=== PATIENT | female | born 1945 | race Asian ===

== ENCOUNTER 2018-02-04 11:13 | Inpatient (IN) | payer MEDICARE ==
[~2018-02-04] VITALS: Ht 157.5 cm; Wt 64.9 kg
--- NOTE | 2018-02-04 11:16 | NUR ---
PT BIBRA FROM HOME TO ER BED 03. C/O L HIP PAIN S/P MECHANICAL FALL AFTER MISSING A STEP GOING DOWN THE STAIRS. NO OBVIOUS DEFORMITY. WAS GIVEN MORPHINE 4MG IVP. VSS NUVIA SAHU.
--- NOTE | 2018-02-04 11:18 | NUR ---
DR ESCUDERO AT BEDSIDE FOR EVAL.
[2018-02-04 11:38] LABS: BASOPHILS # (AUTO) 0.1 /CMM (0.0-0.2); BASOPHILS % (AUTO) 0.8 % (0.0-2.0); EOSINOPHILS % (AUTO) 3.2 % (0.0-6.0); HEMATOCRIT 38 % (33-45); HEMOGLOBIN 12.6 g/dL (11.5-14.8); LYMPHOCYTES # (AUTO) 1.9 /CMM (0.8-4.8); LYMPHOCYTES % (AUTO) 28.8 % (20.0-44.0); MEAN CORPUSCULAR HEMOGLOBIN 29 PG (26.0-33.0); MEAN CORPUSCULAR HGB CONC 33 g/dl (31.0-36.0); MEAN CORPUSCULAR VOLUME 88 fL (82-100); MONOCYTES # (AUTO) 0.6 /CMM (0.1-1.30); MONOCYTES % (AUTO) 9.4 % (2.0-12.0); NEUTROPHILS # (AUTO) 3.9 /CMM (1.8-8.9); NEUTROPHILS % (AUTO) 57.8 % (43.0-81.0); PLATELET COUNT (AUTO) 221 /CMM (150-450); RDW COEFFICIENT OF VARIATION 14.4 (11.5-15.0); RED BLOOD CELL COUNT(AUTO) 4.35 MIL/uL (4.0-5.2); WHITE BLOOD COUNT (AUTO) 6.7 K/uL (4.3-11.0)
[2018-02-04 11:48] LABS: CALCIUM, SERUM 8.8 mg/dL (8.5-10.1); CARBON DIOXIDE 26 mmol/L (21-32); CHLORIDE 105 mmol/L (98-107); CREATININE 0.8 mg/dL (0.6-1.3); GLUCOSE 117 mg/dL (74-106); SODIUM SERUM 137 mmol/L (136-145); UREA NITROGEN, BLOOD 16 mg/dL (7-18)
[2018-02-04 11:51] LABS: INR 0.91 (0.85-1.15)
[2018-02-04 11:57] LABS: TROPONIN I < 0.017 ng/mL (0.00-0.056)
--- NOTE | 2018-02-04 11:58 | NUR ---
RADIOLOGY AT BEDSIDE FOR PELVIC, HIP AND CHEST XRAY.
--- NOTE | 2018-02-04 12:07 | NUR ---
CALLED [facility]
--- NOTE | 2018-02-04 12:08 | NUR ---
CALLED JARRED HARKINS, BUSINESS PLANNER WAS PAGED.
[2018-02-04] MEDS ORDERED: Z GUARD REMEDY 2 OZ OINT TP PRN (12:30)
[2018-02-04] MEDS ORDERED: ZOLPIDEM TARTRATE 5 MG TABLET PO PRN (12:30)
[2018-02-04] MEDS ORDERED: ONDANSETRON HCL/PF 4 MG/2 ML VIAL IVP PRN (12:30)
[2018-02-04] MEDS ORDERED: MAG HYDROX/AL HYDROX/SIMETH 30 ML UDC PO PRN (12:30)
[2018-02-04] MEDS ORDERED: ACETAMINOPHEN 325 MG TABLET PO PRN (12:30)
[2018-02-04] MEDS ORDERED: MAGNESIUM HYDROXIDE 30 ML UDC PO PRN (12:30)
[2018-02-04] MEDS ORDERED: ASPI-1169 PO (13:46)
[2018-02-04] MEDS ORDERED: SIMV20TA6 PO (13:46)
[2018-02-04] MEDS: HYDROCODONE/APAP 5/325MG 1 EACH TABLET PO PRN ×2 (14:16→20:08)
--- NOTE | 2018-02-04 14:20 | NUR ---
MS RN NOTES RECEIVED PATIENT FROM ER PATIENT ALERT, ORIENTED X3 NO SOB OR ACUTE DISTRESS NOTED. PATIENT WITH FAMILY AT BEDSIDE. REPORTS PAIN TO LEFT HIP WITH MOVEMENT . PATIENT WITH NO PAST MEDICAL HISTORY. PATIENT REFUSES SKIN ASSESSMENT STATES SHE IS SCARED TO MOVE. PATIENT ORIENTED TO ROOM. CALL LIGHT WITHIN REACH. BED IN LOW LOCKED POSITION. WILL CONTINUE TO MONITOR.
[2018-02-04] MEDS ORDERED: HYDROMORPHONE 1 MG/1 ML DISP.SYRIN IV PRN (17:30)
--- NOTE | 2018-02-04 18:31 | NUR ---
MS RN NOTES PATIENT IN BED RESTING PAIN IS CONTROLLED WITH MEDICATION. ALL DUE MEDICATIONS ADMINISTERED. ALL NEEDS MET WILL ENDORSE TO PM SHIFT QUANG.
--- NOTE | 2018-02-04 19:00 | NUR ---
RN OPENING NOTES PT AWAKE AND RESTING IN BED. PT COMPLAINS OF PAIN BUT STATED THAT SHE DOES NOT WANT TO TAKE MEDICATION AT THIS TIME. WILL CONTINUE TO FOLLOW UP AND WORK WITH PATIENT ON PAIN MANAGEMENT. PT HAS A SMITH CATHETER INTACT AND DRAINING WELL. PT HAS A RIGHT AC #20 INTACT AND PATENT. PER DAY SHIFT NURSE PATIENTS SON WILL BE RETURNING AFTER HE HAS DINNER TO SIGN CONSENT FOR LEFT INTRAMEDULLARY RODDING SX TOMORROW. PER LIN DAY SHIFT NURSE THE SURGERY IS SCHEDULED BETWEEN [phone] TOMORROW. PT WILL NEED TO BE NPO AFTER 0800. SAFETY PRECAUTIONS IN PLACE, BED IN LOWEST LOCKED POSITION, X2 SIDE RAILS UP, AND CALL LIGHT WITHIN REACH. WILL CONTINUE TO MONITOR.
[2018-02-04 20:00] VITALS: BP 148/78
[2018-02-05] VITALS (8 sets, daily range): BP systolic 110–166; BP diastolic 69–84
[2018-02-05] MEDS: HYDROMORPHONE INJ 2 MG/ML DISP.SYRIN IV PRN ×4 (00:11→19:54)
--- NOTE | 2018-02-05 06:32 | NUR ---
RN CLOSING NOTES PT RESTING IN BED. NO COMPLAINTS OF SOB OR DISTRESS OVER NIGHT. PAIN MANAGED DURING SHIFT. PT HAS A SMITH CATHETER INTACT AND DRAINING WELL 1200 OUTPUT. PT HAS A RIGHT AC #20 INTACT AND PATENT. ALL CONSENTS SIGNED FOR LEFT HIP SURGERY. PT WILL NEED TO BE NPO AFTER 0800. ALL PATIENT NEEDS MET OVERNIGHT.SAFETY PRECAUTIONS IN PLACE, BED IN LOWEST LOCKED POSITION, X2 SIDE RAILS UP, AND CALL LIGHT WITHIN REACH. WILL ENDORSE TO DAY SHIFT NURSE FOR CONTINUITY OF CARE.
[2018-02-05 06:56] LABS: BASOPHILS % (AUTO) 0.2 % (0.0-2.0); EOSINOPHILS % (AUTO) 0.2 % (0.0-6.0); HEMATOCRIT 37 % (33-45); HEMOGLOBIN 12.2 g/dL (11.5-14.8); LYMPHOCYTES # (AUTO) 1.4 /CMM (0.8-4.8); LYMPHOCYTES % (AUTO) 12.9 % (20.0-44.0); MEAN CORPUSCULAR HEMOGLOBIN 30 PG (26.0-33.0); MEAN CORPUSCULAR HGB CONC 33 g/dl (31.0-36.0); MEAN CORPUSCULAR VOLUME 91 fL (82-100); MONOCYTES # (AUTO) 0.6 /CMM (0.1-1.30); MONOCYTES % (AUTO) 5.8 % (2.0-12.0); NEUTROPHILS # (AUTO) 8.6 /CMM (1.8-8.9); NEUTROPHILS % (AUTO) 80.9 % (43.0-81.0); PLATELET COUNT (AUTO) 210 /CMM (150-450); RDW COEFFICIENT OF VARIATION 15.1 (11.5-15.0); RED BLOOD CELL COUNT(AUTO) 4.03 MIL/uL (4.0-5.2); WHITE BLOOD COUNT (AUTO) 10.6 K/uL (4.3-11.0)
[2018-02-05 07:17] LABS: CALCIUM, SERUM 8.7 mg/dL (8.5-10.1); CARBON DIOXIDE 26 mmol/L (21-32); CHLORIDE 99 mmol/L (98-107); CREATININE 0.6 mg/dL (0.6-1.3); GLUCOSE 131 mg/dL (74-106); PHOSPHORUS 3.1 mg/dL (2.5-4.9); POTASSIUM 3.7 mmol/L (3.5-5.1); SODIUM SERUM 135 mmol/L (136-145); UREA NITROGEN, BLOOD 13 mg/dL (7-18)
[2018-02-05 07:39] LABS: CHOLESTEROL 170 mg/dL (<200); HDL CHOLESTEROL 51 mg/dL (40-60); LDL 102 mg/dL (0-99); TRIGLYCERIDES 88 mg/dL (30-150)
--- NOTE | 2018-02-05 08:00 | NUR ---
RECEIVED PT. THIS AM NPO AFTER 8AM BREAKFAST.PT. UNDERSTANDS SOME MOROCCAN.
--- NOTE | 2018-02-05 10:00 | NUR ---
SPOUSE IN AND INFORMED OF NEEDED INFO SPEAKS FLUENT MONGOLIAN.CHECKLIST DONE.
--- NOTE | 2018-02-05 13:24 | NUR ---
MEDICATED FOR LT. HIP PAIN WITH DILAUDID.
--- NOTE | 2018-02-05 16:00 | NUR ---
TO OR VIA BED.
[2018-02-05] MEDS ORDERED: ANESTHESIA TRAY IN PYXIS 1 EA TRAY MC ONE (16:43)
[2018-02-05] MEDS ORDERED: BUPIVACAINE MPF 0.75% 30 ML VIAL ONE (16:51)
[2018-02-05] MEDS ORDERED: BACITRACIN 50000 UNITS/VIAL ONE (16:51)
--- NOTE | 2018-02-05 18:50 | NUR ---
RETURNED TO RM.VS STABLE. SCANT SPOT OF SANGUINOUS DRAINAGE ON BOTH HIP DRESSINGS.IV INFUSING SLOWLY.FAMILY AT BEDSIDE.
--- NOTE | 2018-02-05 19:20 | NUR ---
ENDORSED TO NOC RN TO APPLY DVT PUMPS.
--- NOTE | 2018-02-05 19:20 | NUR ---
RN INITIAL NOTES: Received patient in bed, alert, oriented x 4. Family at bedside. Breathing even and unlabored. Peripheral IV infusing slowly. Scant sanguinous drainage noted on hip dressing. Call barfield within reach. Bed in low, locked position. Patient stable as endorsed by the morning shift RN. Will monitor accordingly
--- NOTE | 2018-02-05 19:55 | NUR ---
RN NOTES: Patient c/o pain on hip, dilaudid 1mg IV given as ordered. DVT pump in place
--- NOTE | 2018-02-05 20:34 | NUR ---
Patient is alert and pleasant, lives in a multi-level home with family. Prior to admission, patient was ambulatory and independent with adl's. No DME or homehealth reported. Has good family support. Went for hip surgery this afternoon. Patient is a good candidate for ARU,awaiting PT eval. Addendum: 02/05/18 at 2033 by CHIDI WASHINGTON RN Amended: Links added.
[2018-02-05] MEDS ORDERED: ENOXAPARIN SODIUM 40 MG/0.4 ML DISP.SYRIN SQ SCH (21:00)
[2018-02-05] MEDS: SIMVASTATIN 20 MG TABLET PO SCH (21:55)
[2018-02-06] MEDS: ANCEF 1 GM/50 ML D5W IV SCH ×6 (00:39→17:51)
[2018-02-06] MEDS: HYDROMORPHONE INJ 2 MG/ML DISP.SYRIN IV PRN (06:27)
--- NOTE | 2018-02-06 07:07 | NUR ---
RN CLOSING NOTES: Patient in bed, alert, oriented x 4, japanese speaking. No complaints as of this time. Patient remains stable. All needs attended to. All due medications given as ordered. Will endorse marisela to AM shift RN
[2018-02-06 08:00] VITALS: BP 90/54
[2018-02-06] MEDS ORDERED: BISACODYL (5 MG) 5 MG TABLET.DR PO PRN (09:00)
[2018-02-06] MEDS ORDERED: HYDROMORPHONE INJ 2 MG/ML DISP.SYRIN IV PRN (09:00)
[2018-02-06] MEDS ORDERED: BISACODYL SUPP (10 MG) 10 MG/SUPP.RECT SUPP.RECT RC PRN (09:00)
[2018-02-06 09:25] LABS: BASOPHILS % (AUTO) 0.2 % (0.0-2.0); EOSINOPHILS % (AUTO) 0.2 % (0.0-6.0); HEMATOCRIT 29 % (33-45); HEMOGLOBIN 9.6 g/dL (11.5-14.8); LYMPHOCYTES # (AUTO) 2.1 /CMM (0.8-4.8); LYMPHOCYTES % (AUTO) 17.1 % (20.0-44.0); MEAN CORPUSCULAR HEMOGLOBIN 30 PG (26.0-33.0); MEAN CORPUSCULAR HGB CONC 33 g/dl (31.0-36.0); MEAN CORPUSCULAR VOLUME 91 fL (82-100); MONOCYTES # (AUTO) 1.2 /CMM (0.1-1.30); MONOCYTES % (AUTO) 10.1 % (2.0-12.0); NEUTROPHILS % (AUTO) 72.4 % (43.0-81.0); PLATELET COUNT (AUTO) 189 /CMM (150-450); RDW COEFFICIENT OF VARIATION 15.6 (11.5-15.0); RED BLOOD CELL COUNT(AUTO) 3.15 MIL/uL (4.0-5.2); WHITE BLOOD COUNT (AUTO) 12.4 K/uL (4.3-11.0)
[2018-02-06 09:28] LABS: CALCIUM, SERUM 8.1 mg/dL (8.5-10.1); CARBON DIOXIDE 26 mmol/L (21-32); CHLORIDE 101 mmol/L (98-107); CREATININE 1.1 mg/dL (0.6-1.3); GLUCOSE 146 mg/dL (74-106); POTASSIUM 3.8 mmol/L (3.5-5.1); SODIUM SERUM 135 mmol/L (136-145); UREA NITROGEN, BLOOD 19 mg/dL (7-18)
[2018-02-06 09:32] LABS: ALANINE AMINOTRANSFERASE 16 U/L (12-78); ALBUMIN 3.1 g/dL (3.4-5.0); ALKALINE PHOSPHATASE 47 U/L (46-116); ASPARTATE AMINOTRANSFERASE 25 U/L (15-37); BILIRUBIN,TOTAL 0.7 mg/dL (0.2-1.0); PHOSPHORUS 3.9 mg/dL (2.5-4.9); TOTAL PROTEIN, SERUM 6.6 g/dL (6.4-8.2)
[2018-02-06] MEDS: ASPIRIN 81 MG TAB.CHEW PO SCH (09:41)
[2018-02-06] MEDS: POLYETHYLENE GLYCOL 3350 17 GM POWD.PACK PO SCH ×2 (09:42→21:25)
[2018-02-06 16:00] VITALS: BP 91/52
--- NOTE | 2018-02-06 18:30 | NUR ---
dr. quach,dr. rivera,physical tx and jacinta rodriguez pa in to see pt. had lrg. bm today after miralax.family in to visit.
--- NOTE | 2018-02-06 19:15 | NUR ---
RN INITIAL NOTES: RECEIVED PATIENT SITTING UP IN BED, WATCHING TV. ALERT, ORIENTED X 4, FILIPINO SPEAKING. BREATHING EVEN AND UNLABORED. NO COMPLAINTS OF THIS TIME. CALL TAVERA WITHIN REACH. BED IN LOW LOCKED POSITION. PATIENT STABLE ENDORSED BY AM SHIFT RN. WILL CONTINUE TO MONITOR ACCORDINGLY.
[2018-02-06 20:00] VITALS: BP 116/62
[2018-02-06] MEDS ORDERED: ENOXAPARIN SODIUM 40 MG/0.4 ML DISP.SYRIN SQ SCH (21:00)
[2018-02-06] MEDS: SIMVASTATIN 20 MG TABLET PO SCH (21:26)
--- NOTE | 2018-02-06 22:13 | NUR ---
RN NOTES: Patient moved her bowels; small, formed
[2018-02-07] MEDS: HYDROCODONE/APAP 10/325MG 1 EA TABLET PO PRN ×2 (02:26→08:19)
[2018-02-07 06:22] LABS: BASOPHILS % (AUTO) 0.3 % (0.0-2.0); EOSINOPHILS % (AUTO) 2.2 % (0.0-6.0); HEMATOCRIT 25 % (33-45); HEMOGLOBIN 8.4 g/dL (11.5-14.8); LYMPHOCYTES # (AUTO) 1.6 /CMM (0.8-4.8); LYMPHOCYTES % (AUTO) 16.7 % (20.0-44.0); MEAN CORPUSCULAR HEMOGLOBIN 30 PG (26.0-33.0); MEAN CORPUSCULAR HGB CONC 34 g/dl (31.0-36.0); MEAN CORPUSCULAR VOLUME 91 fL (82-100); MONOCYTES # (AUTO) 1.1 /CMM (0.1-1.30); MONOCYTES % (AUTO) 11.2 % (2.0-12.0); NEUTROPHILS # (AUTO) 6.8 /CMM (1.8-8.9); NEUTROPHILS % (AUTO) 69.6 % (43.0-81.0); PLATELET COUNT (AUTO) 159 /CMM (150-450); RDW COEFFICIENT OF VARIATION 15.1 (11.5-15.0); RED BLOOD CELL COUNT(AUTO) 2.76 MIL/uL (4.0-5.2); WHITE BLOOD COUNT (AUTO) 9.7 K/uL (4.3-11.0)
[2018-02-07 06:51] LABS: ALANINE AMINOTRANSFERASE 17 U/L (12-78); ALKALINE PHOSPHATASE 47 U/L (46-116); ASPARTATE AMINOTRANSFERASE 21 U/L (15-37); BILIRUBIN,TOTAL 0.8 mg/dL (0.2-1.0); CALCIUM, SERUM 8.2 mg/dL (8.5-10.1); CARBON DIOXIDE 26 mmol/L (21-32); CHLORIDE 102 mmol/L (98-107); CREATININE 0.7 mg/dL (0.6-1.3); GLUCOSE 126 mg/dL (74-106); MAGNESIUM 2.1 mg/dL (1.8-2.4); PHOSPHORUS 3.8 mg/dL (2.5-4.9); POTASSIUM 4.3 mmol/L (3.5-5.1); SODIUM SERUM 136 mmol/L (136-145); TOTAL PROTEIN, SERUM 6.6 g/dL (6.4-8.2); UREA NITROGEN, BLOOD 21 mg/dL (7-18)
--- NOTE | 2018-02-07 07:18 | NUR ---
RN INITIAL NOTES: PATIENT RESTING IN BED. NONLABORED BREATHING NOTED ON ROOM AIR. DENYING PAIN AT THE MOMENT. IV SITE ON RFA PATENT AND INTACT. BED IN LOWEST LOCKED POSITION. CALL LIGHT WITHIN REACH. WILL CONTINUE TO MONITOR
--- NOTE | 2018-02-07 07:27 | NUR ---
RN CLOSING NOTES: Patient remained stable. No complaints of pain or discomfort as of this time. Call barfield within reach. Bed in low locked position. All needs attended to. All due meds given as ordered. Endorsed to morning shift RN.
[2018-02-07 08:00] VITALS: BP 114/60
--- NOTE | 2018-02-07 08:21 | NUR ---
INCENTIVE SPIROMETER PATIENT PROVIDED WITH IS, BENEFITS AND RISKS EXPLAINED. EDUCATED HOW AND HOW OFTEN TO USE IT. PATIENT VERBALIZED UNDERSTANDING
[2018-02-07] MEDS: ASPIRIN 81 MG TAB.CHEW PO SCH (09:57)
[2018-02-07] MEDS ORDERED: BISA5TAB10 PO (11:19)
[2018-02-07] MEDS ORDERED: Hydrocodone/Apap 10/325MG PO (11:19)
[2018-02-07] MEDS ORDERED: POLY17PO4 PO (11:19)
[2018-02-07] MEDS ORDERED: ENOX40DI SQ (11:19)
--- NOTE | 2018-02-07 12:17 | NUR ---
RECEIVED AN ORDER FROM DR RASMUSSEN TO REMOVE SMITH CATHETER. VERBAL READBACK DONE
--- NOTE | 2018-02-07 14:01 | NUR ---
IV LINE ON RIGHT AC REMOVED WAS NOT PATENT. NEW IV LINE ON LEFT FA INSERTED GAUGE 22
--- NOTE | 2018-02-07 16:10 | NUR ---
PATIENT DISCHARGED TO [facility]. FULL REPORT GIVEN TO LIANA SAAVEDRA, DISCUSSED INSTRUCTIONS TO FOLLOW UP WITH DR COLLINS IN A WEEK. DISCUSSED PHYSICAL THERAPY INSTRUCTIONS, DISCUSSED HEMOGLOBIN PARAMETERS FOR LOVENOX PATIENT DISCHARGED TO SNF PER [facility]. DR RASMUSSEN AWARE OF [facility]. NO SIGNS OF BLEEDING NOTED DURING SHIFT. NO VOMITING NOR DIARRHEA NOTED DURING SHIFT. FIRST DRESSING CHANGE DONE BY COREY RINALDI- EDUCATED PATIENT WELL SON, VASYL, WHO IS AWARE OF DISCHARGE ON EXISTCARE INSTRUCTIONS. BOTH VERBALIZED UNDERSTANDING PATIENT ABLE TO VOID AFTER SMITH CATHETER REMOVAL- NO SIGNS OF RETENTION NOTED ALL BELONGINGS GIVEN TO PATIENT. IV LINE REMOVED. PATIENT REFUSED SKIN PICTURE FOR FIRST DRESSING CHANGE. BENEFITS AND RISKS EXPLAINED MULTIPLE TYLENOL 650 MG PRN ADMINISTERED FOR MILD PAIN PRIOR TO DISCHARGE PATIENT LEFT VIA AMBULANCE
== END 2018-02-07 16:10 | DRG 482 ==
LOC: ER 11:14 → MED 13:10
PROVIDERS: ADMIT Internal Medicine; ATTEND Internal Medicine
PROC: 0QS906Z Reposition Left Femoral Shaft with Intramedullary Internal Fixation Device, Open Approach (ICD-10-PCS; principal; 2018-02-05 16:30)
DX: S72.22XA Displaced subtrochanteric fracture of left femur, initial encounter for closed fracture (principal); I10 Essential (primary) hypertension; E78.5 Hyperlipidemia, unspecified; I34.0 Nonrheumatic mitral (valve) insufficiency; I35.1 Nonrheumatic aortic (valve) insufficiency; K59.00 Constipation, unspecified; W01.0XXA Fall on same level from slipping, tripping and stumbling without subsequent striking against object, initial encounter; Y92.009 Unspecified place in unspecified non-institutional (private) residence as the place of occurrence of the external cause
CPT/HCPCS: 36415; 71045-TC; 73502; 75625-TC; 80048-TC; 80053-TC; 80061-TC; 83735-TC; 84100-TC; 84484-TC; 85025-TC; 85730-TC; 86850-TC; 86921-TC; 87081-TC; 93307-TC; 97110-TC; 97116-TC; 97530-TC; A4606; J0690; J1170; J1650; J3490; J7030; J7060; Z7610

== ENCOUNTER 2022-01-08 17:43 | Inpatient (IN) | payer MEDICARE ==
[~2022-01-08] VITALS: Ht 144.8 cm; Wt 54.4 kg
[~2022-01-08 17:43] MED LIST: ASPI-1169 PO; BISA5TAB10 PO; ENOX40DI SQ; Hydrocodone/Apap 10/325MG PO; POLY17PO4 PO; SIMV-46 PO
--- NOTE | 2022-01-08 18:18 | NUR ---
TO ER BED 4, [id number] FROM HOME C/O MECHANICAL FALL, C/O RIGHT HIP PAIN, FELL ON FIRE PLACE WHILE FIXING CURTAIN, GIVEN 100MCG FENTANYL EMULSIFICATION OPERATOR, PAIN DOWN TO 3/10, AAOX3, BREATHING EVEN AND NON LABORED, AWAITING MD SAHU
--- NOTE | 2022-01-08 19:08 | NUR ---
COVID ANTIGEN SWAB DONE AND SENT TO THE LAB
--- NOTE | 2022-01-08 19:18 | NUR ---
MOVE SHEET SUBMITTED.
[2022-01-08 19:27] LABS: BASOPHILS % (AUTO) 0.5 % (0.0-2.0); EOSINOPHILS % (AUTO) 1.9 % (0.0-6.0); HEMATOCRIT 36 % (33-45); HEMOGLOBIN 11.8 g/dL (11.5-14.8); LYMPHOCYTES # (AUTO) 1.2 K/uL (0.8-4.8); LYMPHOCYTES % (AUTO) 18.1 % (20.0-44.0); MEAN CORPUSCULAR HGB CONC 33 g/dl (31.0-36.0); MEAN CORPUSCULAR VOLUME 90 fL (82-100); MONOCYTES # (AUTO) 0.5 K/uL (0.1-1.30); NEUTROPHILS # (AUTO) 4.9 K/uL (1.8-8.9); NEUTROPHILS % (AUTO) 71.5 % (43.0-81.0); PLATELET COUNT (AUTO) 188 K/uL (150-450); RED BLOOD CELL COUNT(AUTO) 4.01 MIL/uL (4.0-5.2); WHITE BLOOD COUNT (AUTO) 6.8 K/uL (4.3-11.0)
[2022-01-08] MEDS ORDERED: ONDANSETRON HCL/PF 4 MG/2 ML VIAL ONE (19:27)
[2022-01-08] MEDS ORDERED: HYDROMORPHONE 1 MG/1 ML DISP.SYRIN ONE (19:27)
--- NOTE | 2022-01-08 19:29 | NUR ---
FUSE CUTTER AT PT'S BEDSIDE
[2022-01-08] MEDS ORDERED: ONDANSETRON HCL/PF - ER 4 MG/2 ML VIAL IV ONE (19:30)
[2022-01-08] MEDS ORDERED: HYDROMORPHONE 1 MG/1 ML DISP.SYRIN IV ONE (19:30)
--- NOTE | 2022-01-08 20:03 | NUR ---
PT TAKEN TO CT VIA JOI
--- NOTE | 2022-01-08 20:16 | NUR ---
MRSA SWAB COLLECTED AND SENT TO LAB. PATIENT'S BELONGINGS LIST DONE.
[2022-01-08 20:21] LABS: ALANINE AMINOTRANSFERASE 19 U/L (12-78); ALBUMIN 3.9 g/dL (3.4-5.0); ALKALINE PHOSPHATASE 85 U/L (46-116); ASPARTATE AMINOTRANSFERASE 20 U/L (15-37); BILIRUBIN,DIRECT 0.1 mg/dL (0.0-0.2); BILIRUBIN,TOTAL 0.5 mg/dL (0.2-1.0); CALCIUM, SERUM 9.7 mg/dL (8.5-10.1); CARBON DIOXIDE 29 mmol/L (21-32); CHLORIDE 104 mmol/L (98-107); CREATININE 0.8 mg/dL (0.6-1.3); GLUCOSE 116 mg/dL (74-106); POTASSIUM 3.5 mmol/L (3.5-5.1); SODIUM SERUM 142 mmol/L (136-145); TOTAL PROTEIN, SERUM 7.8 g/dL (6.4-8.2); UREA NITROGEN, BLOOD 22 mg/dL (7-18)
--- NOTE | 2022-01-08 20:25 | NUR ---
PT SEEN BY ABBIE [facility]
[2022-01-08] MEDS ORDERED: MORPHINE SULFATE INJ 2 MG/ML DISP.SYRIN IV PRN ×2 (21:00)
[2022-01-08] MEDS ORDERED: ONDANSETRON HCL/PF 4 MG/2 ML VIAL IVP PRN (21:00)
[2022-01-08] MEDS ORDERED: MAG HYDROX/AL HYDROX/SIMETH 30 ML UDC PO PRN (21:00)
[2022-01-08] MEDS ORDERED: Z GUARD REMEDY 4 OZ OINT TP PRN (21:00)
[2022-01-08] MEDS ORDERED: ACETAMINOPHEN 325 MG TABLET PO PRN (21:00)
--- NOTE | 2022-01-08 21:08 | NUR ---
BED 304-1
--- NOTE | 2022-01-08 21:12 | NUR ---
FC 16 FR INSERTED WITH URINE RETURN
--- NOTE | 2022-01-08 21:20 | NUR ---
Rudy tony in [facility] - 01/08/22 at 2121 by [place]A [place] [id number]
--- NOTE | 2022-01-08 21:20 | NUR ---
REPORT GIVEN TO CHARGE NURSE
--- NOTE | 2022-01-08 22:11 | NUR ---
TRANSFERRED TO 304 IN STABLE CONSITION
--- NOTE | 2022-01-08 23:00 | NUR ---
RD MANAGER NOTES; RECEIVED PATIENT VIA GURNEY ACCOMPANIED BY FAMILY FROM ER, PATIENT IS AWAKE ON ROOM AIR SATURATING WELL, TRANSFER TO ROOM 309, SKIN ASSESSMENT DONE FRONT DUE TO PATIENT REFUSAL TO TURN PATIENT IS IN PAIN DUE TO HIP FX, NO SKIN ISSUES FOUND, INVENTORY TAKEN AND RECORDED, PATIENT WAS ORIENTED TO PLACE REMIND PATIENT TO USE THE CALL LIGHTS WHEN NEEDED ASSISTANCE, PLACED IN BED COMFORTABLY IN LOW POSITION CALL LIGHTS WITHIN REACH, FAMILY WAS INTERVIEWED DURING DATA GATHERING PATIENT UNDERSTAND FEW AZERI AND RWANDAN SPEAKING, KEPT CLEAN AND DRY ALL NEEDS MET WILL CONTINUE TO MONITOR.
[2022-01-08] MEDS: PANTOPRAZOLE 40 MG VIAL IV SCH (23:20)
[2022-01-08] MEDS: ENOXAPARIN SODIUM 30 MG/0.3 ML DISP.SYRIN SQ SCH (23:21)
[2022-01-08] MEDS: IV D5/0.45 NACL 1,000 ML IV PRN (23:22)
[2022-01-09 01:03] VITALS: BP 123/63
[2022-01-09 06:30] LABS: BASOPHILS % (AUTO) 0.3 % (0.0-2.0); EOSINOPHILS % (AUTO) 0.2 % (0.0-6.0); HEMATOCRIT 32 % (33-45); HEMOGLOBIN 10.9 g/dL (11.5-14.8); LYMPHOCYTES # (AUTO) 0.9 K/uL (0.8-4.8); LYMPHOCYTES % (AUTO) 12.3 % (20.0-44.0); MEAN CORPUSCULAR HGB CONC 34 g/dl (31.0-36.0); MEAN CORPUSCULAR VOLUME 91 fL (82-100); MONOCYTES # (AUTO) 0.7 K/uL (0.1-1.30); MONOCYTES % (AUTO) 9.6 % (2.0-12.0); NEUTROPHILS # (AUTO) 5.9 K/uL (1.8-8.9); NEUTROPHILS % (AUTO) 77.6 % (43.0-81.0); PLATELET COUNT (AUTO) 174 K/uL (150-450); RED BLOOD CELL COUNT(AUTO) 3.51 MIL/uL (4.0-5.2); WHITE BLOOD COUNT (AUTO) 7.6 K/uL (4.3-11.0)
--- NOTE | 2022-01-09 07:30 | NUR ---
MS RN OPENING NOTES RECEIVED PATIENT ON BED AWAKE AND A/O X3-4. ON ROOM AIR TOLERATING WELL. NO SOB NOTED. NOT IN DISTRESS. WITH COMPLAINTS OF PAIN AT THE RIGHT HIP AT THE SCALE OF 7/10 BUT DOESN'T ASK FOR ANY PAIN MEDICATION. WITH IV ACCESS AT THE LEFT HAND G20 WITH IVF D5 1/2NS AT 75ML/HR INFUSING WELL. WITH SMITH CATHETER IN PLACED DRAINING CLEAR YELLOW URINE. SAFETY MEASURES IN PLACED. CALL LIGHT WITHIN REACH. BED ON LOWEST LOCKED POSITION, SIDE RAILS UP X2. WILL CONTINUE TO MONITOR.
[2022-01-09 07:34] LABS: CALCIUM, SERUM 8.7 mg/dL (8.5-10.1); CREATININE 0.7 mg/dL (0.6-1.3); MAGNESIUM 1.9 mg/dL (1.8-2.4); PHOSPHORUS 4.2 mg/dL (2.5-4.9); POTASSIUM 3.4 mmol/L (3.5-5.1)
--- NOTE | 2022-01-09 07:52 | NUR ---
MS RN CLOSING NOTES: PATIENT SLEEP IN BED COMFORTABLY, BED IN LOW POSITION CALL LIGHTS WITHIN REACH, NO COMPLAIN OF PAIN AND DISCOMFORT AT THIS TIME, ON ROOM AIR SATURATING WELL, PATIENT ON SMITH CATHETER- 1300CC OUTPUT, WITH IV LINE AT LEFT HAND #20 WITH ONGOING D5 1/2 NSS@75ML/HR INFUSING WELL, PATIENT REFUSE TO BE TURNED DUE TO PAIN OF FRACTURE RIGHT HIP, PATIENT KEPT CLEAN AND DRY ALL NEEDS MET ENDORSE TO INCOMING SHIFT.
[2022-01-09 07:58] LABS: THYROID STIMULATING HORMONE 0.257 uIU/mL (0.358-3.74)
[2022-01-09 08:00] VITALS: BP 132/80
[2022-01-09] MEDS ORDERED: MONT10TA22 PO (08:19)
[2022-01-09] MEDS ORDERED: AMLO-212 PO (08:19)
[2022-01-09] MEDS ORDERED: LEVO5TAB13 PO (08:19)
[2022-01-09] MEDS ORDERED: ALLO100T PO (08:19)
[2022-01-09] MEDS: PANTOPRAZOLE 40 MG VIAL IV SCH (08:44)
[2022-01-09] MEDS: POTASSIUM CL. PREMIX PERIPHER. 50 ML IV SCH ×4 (08:44→18:13)
[2022-01-09] MEDS: IV D5/0.45 NACL 1,000 ML IV PRN (13:45)
[2022-01-09 16:00] VITALS: BP 140/74
--- NOTE | 2022-01-09 18:15 | NUR ---
MS RN CLOSING NOTES PATIENT ON BED AWAKE AND A/O X4. ON ROOM AIR TOLERATING WELL. NO SOB NOTED. NOT IN DISTRESS. WITH COMPLAINTS OF PAIN AT THE RIGHT HIP AT THE SCALE OF 7/10 BUT DOESN'T ASK FOR ANY PAIN MEDICATION. APPLIED ICE PACKS ON THE AFFECTED AREA. WITH IV ACCESS AT THE LEFT FOREARM G20 WITH IVF D5 1/2NS AT 75ML/HR INFUSING WELL. WITH SMITH CATHETER IN PLACED DRAINING CLEAR YELLOW URINE. SAFETY MEASURES IN PLACED. CALL LIGHT WITHIN REACH. BED ON LOWEST LOCKED POSITION, SIDE RAILS UP X2. WILL ENDORSE TO NEXT SHIFT FOR QUANG.
[2022-01-09 20:00] VITALS: BP 149/72
[2022-01-09] MEDS: MAGNESIUM HYDROXIDE 30 ML UDC PO PRN (20:00)
--- NOTE | 2022-01-09 20:08 | NUR ---
RN OPENING NOTES: RECEIVD PATIENT AWAKE IN BED ACCOMPANIED BY FAMILY, BED IN LOW POSITION CALL LIGHTS WITHIN REACH, NO COMPLAIN OF PAIN AND DISCOMFORT AT THIS TIME ON ROOM AIR SATURATING WELL, WITH ONGOING IV AT LFA WITH D5 1/2 NSS@75ML/HER INFUSING WELL, PATIENT KEPT CLEAN AND DRY ALL NEEDS MET WILL CONTINUE TO MONITOR
[2022-01-09] MEDS: ENOXAPARIN SODIUM 30 MG/0.3 ML DISP.SYRIN SQ SCH (21:45)
[2022-01-09 22:19] VITALS: BP 149/72
[2022-01-10] MEDS: IV D5/0.45 NACL 1,000 ML IV PRN ×2 (03:50→18:06)
[2022-01-10 06:18] LABS: BASOPHILS % (AUTO) 0.2 % (0.0-2.0); EOSINOPHILS % (AUTO) 0.9 % (0.0-6.0); HEMATOCRIT 33 % (33-45); HEMOGLOBIN 11.1 g/dL (11.5-14.8); LYMPHOCYTES # (AUTO) 1.3 K/uL (0.8-4.8); LYMPHOCYTES % (AUTO) 15.1 % (20.0-44.0); MEAN CORPUSCULAR HGB CONC 33 g/dl (31.0-36.0); MEAN CORPUSCULAR VOLUME 90 fL (82-100); MONOCYTES # (AUTO) 0.9 K/uL (0.1-1.30); MONOCYTES % (AUTO) 10.5 % (2.0-12.0); NEUTROPHILS # (AUTO) 6.5 K/uL (1.8-8.9); NEUTROPHILS % (AUTO) 73.3 % (43.0-81.0); PLATELET COUNT (AUTO) 173 K/uL (150-450); RED BLOOD CELL COUNT(AUTO) 3.71 MIL/uL (4.0-5.2); WHITE BLOOD COUNT (AUTO) 8.8 K/uL (4.3-11.0)
[2022-01-10 06:19] LABS: ALBUMIN 3.3 g/dL (3.4-5.0); BILIRUBIN,TOTAL 0.5 mg/dL (0.2-1.0); CALCIUM, SERUM 8.3 mg/dL (8.5-10.1); CREATININE 0.7 mg/dL (0.6-1.3); MAGNESIUM 2.4 mg/dL (1.8-2.4); PHOSPHORUS 2.8 mg/dL (2.5-4.9); POTASSIUM 3.7 mmol/L (3.5-5.1); TOTAL PROTEIN, SERUM 6.9 g/dL (6.4-8.2)
--- NOTE | 2022-01-10 07:27 | NUR ---
MS RN CLOSING NOTES: PATIENT SLEEP IN BED COMFORTABLY AROUSABLE TO VERBAL STIMULI, BED IN LOW POSITION, CALL LIGHTS WITHIN REACH NO COMPLAIN OF PAIN AND DISCOMFORT AT THIS TIME, ON ROOM AIR SATURATING WELL, PATIENT ON NPO, WITH SMITH CATHETER- 1800 WITH IV LINE AT LFA#20 WITH ONGOING D5 1/2 NSS@75ML/HR INFUSING WELL, PATIENT KEPT CLEAN AND DRY ALL NEEDS MET, ENDORSE TO INCOMING SHIFT.
--- NOTE | 2022-01-10 07:30 | NUR ---
MS RN OPENING NOTES RECEIVED PATIENT LYING COMFORTABLY IN BED, AWAKE; A/O X3-4. PATIENT IS ON ROOM AIR, AND S/S OF SOB AND DISTRESS NOTED. PATIENT IS IN CONSTANT PAIN AND UNABLE TO MOVE HIS RIGHT HIP BUT PATIENT DOESN'T ASK FOR ANY PAIN MEDICATION. IV ACCESS IN LEFT HAND G20 WITH D5 1/2NS AT 75ML/HR, PATENT AND INFUSING WELL. WITH SMITH CATHETER IN PLACED DRAINING CLEAR YELLOW URINE. SAFETY MEASURES IN PLACED: CALL LIGHT WITHIN REACH; BED ON LOWEST LOCKED POSITION; SIDE RAILS UP X2. WILL CONTINUE TO MONITOR FOR QUANG.
[2022-01-10 08:00] VITALS: BP 153/80
[2022-01-10 08:53] LABS: THYROID STIMULATING HORMONE 0.472 uIU/mL (0.358-3.74)
[2022-01-10] MEDS: PANTOPRAZOLE 40 MG VIAL IV SCH (09:02)
--- NOTE | 2022-01-10 11:39 | NUR ---
WOUND CARE CONSULT: PT PRESENTS WITH INCONTINENCE AND AREAS OF DISCOLORATION ON LEGS, ORTHO WRAP ON RT ARM AND EXCORIATED AREAS TO BUTTOCKS, ALL PRESENT ON ADMISSION. RECOMMENDATIONS MADE FOR SKIN PROTECTION. DISCUSSED WITH NURSING STAFF. IN AGREEMENT WITH PLAN OF CARE. Addendum: 01/10/22 at 1143 by ROMAIN EDWARDS WNDNU PLEASE DISREGARD ABOVE WOUND CARE CONSULT. INCORRECT PT.
[2022-01-10] MEDS ORDERED: ANESTHESIA TRAY IN PYXIS 1 EA TRAY MC ONE (14:58)
[2022-01-10] MEDS ORDERED: BUPIVACAINE 0.25% 75 MG/30 ML VIAL ONE (15:01)
--- NOTE | 2022-01-10 15:30 | NUR ---
MS RN NOTES PATIENT GO TO OR FOR RIGHT FEMUR SURGERY @ 1240
[2022-01-10] MEDS ORDERED: HYDROMORPHONE INJ 2 MG/ML DISP.SYRIN ONE (15:54)
--- NOTE | 2022-01-10 18:50 | NUR ---
MS RN NOTES PATIENT CAME BACK FROM R FEMUR SURGERY ORIF @1850. R HIP SURGERY SITE: C/D/I, NO S/S BLEEDING. PATIENT'S VITAL SIGN IS WITHIN NORMAL LIMITS. REPORT GIVEN BY LIANA BLACK.
--- NOTE | 2022-01-10 19:00 | NUR ---
MS RN CLOSING NOTES PATIENT IS LYING COMFORTABLY IN BED, AWAKE; A/O X3-4. PATIENT IS ON ROOM AIR, AND S/S OF SOB AND DISTRESS NOTED. PATIENT IS IN CONSTANT PAIN AND UNABLE TO MOVE HIS RIGHT HIP BUT PATIENT DOESN'T ASK FOR ANY PAIN MEDICATION. IV ACCESS IN LEFT HAND G20 WITH D5 1/2NS AT 75ML/HR, PATENT AND INFUSING WELL. WITH SMITH CATHETER IN PLACED DRAINING CLEAR YELLOW URINE. PATIENT JUST CAME BACK FROM SURGERY @1850 AND HER VITAL SIGNS WITHIN NORMAL LIMITS. R HIP SURGERY SITE: C/D/I, NO S/S BLEEDING. SAFETY MEASURES IN PLACED: CALL LIGHT WITHIN REACH; BED ON LOWEST LOCKED POSITION; SIDE RAILS UP X2. WILL ENDORSE TO INCOMING NURSE FOR QUANG.
[2022-01-10 19:24] VITALS: BP 128/74
--- NOTE | 2022-01-10 19:30 | NUR ---
RN NOTE PT AWAKE IN BED, A/OX4, ABLE TO MAKE NEEDS KNOWN. LATVIAN-SPEAKING, SOME LITHUANIAN. PT S/P R-HIP ORIF WITH DRESSING IN PLACE, C/D/I. WITH FAMILY (SON AND HIS ) AT BEDSIDE. PER FAMILY, PT DENIES ANY PAIN AT THIS TIME, BUT THAT SHE WILL CALL WHEN SHE WANTS PAIN MED. IV ACCESS L-FA #20G INTACT/PATENT, RUNNING D5 1/2NS @75ML/HR. WITH F/C IN PLACE, DRAINING CLEAR YELLOW URINE. PT IN NO ACUTE DISTRESS. SAFETY MEASURE IN PLACE. WILL CONT TO MONITOR.
[2022-01-10 20:00] VITALS: BP 126/70
[2022-01-10 20:53] LABS: HEMOGLOBIN 9.5 g/dL (11.5-14.8)
[2022-01-10 21:00] VITALS: BP 120/67
[2022-01-10] MEDS: ANCEF 1 GM/50 ML D5W IV SCH ×2 (23:20)
[2022-01-11 06:31] LABS: BASOPHILS % (AUTO) 0.2 % (0.0-2.0); HEMATOCRIT 25 % (33-45); HEMOGLOBIN 8.4 g/dL (11.5-14.8); LYMPHOCYTES # (AUTO) 0.9 K/uL (0.8-4.8); LYMPHOCYTES % (AUTO) 8.9 % (20.0-44.0); MEAN CORPUSCULAR HGB CONC 34 g/dl (31.0-36.0); MEAN CORPUSCULAR VOLUME 91 fL (82-100); MONOCYTES # (AUTO) 1.4 K/uL (0.1-1.30); MONOCYTES % (AUTO) 13.6 % (2.0-12.0); NEUTROPHILS # (AUTO) 8.2 K/uL (1.8-8.9); NEUTROPHILS % (AUTO) 77.3 % (43.0-81.0); PLATELET COUNT (AUTO) 133 K/uL (150-450); RED BLOOD CELL COUNT(AUTO) 2.73 MIL/uL (4.0-5.2); WHITE BLOOD COUNT (AUTO) 10.6 K/uL (4.3-11.0)
--- NOTE | 2022-01-11 07:30 | NUR ---
MS RN OPENING NOTES RECEIVED PATIENT ON BED AWAKE AND A/O X4. ON ROOM AIR TOLERATING WELL. NO SOB NOTED. NOT IN DISTRESS. WITH COMPLAINTS OF PAIN AT THE RIGHT HIP AT THE SCALE OF 5/10 S/P RIGHT HIP ORIF BUT DOESN'T ASK FOR ANY PAIN MEDICATION. WITH IV ACCESS AT THE LEFT HAND G20 WITH IVF D5 1/2NS AT 75ML/HR INFUSING WELL. WITH SMITH CATHETER IN PLACED DRAINING CLEAR YELLOW URINE. SAFETY MEASURES IN PLACED. CALL LIGHT WITHIN REACH. BED ON LOWEST LOCKED POSITION, SIDE RAILS UP X2. WILL CONTINUE TO MONITOR
[2022-01-11 08:00] VITALS: BP 129/59
[2022-01-11] MEDS: ANCEF 1 GM/50 ML D5W IV SCH ×2 (08:30)
[2022-01-11 08:31] LABS: CARBON DIOXIDE 24 mmol/L (21-32); CHLORIDE 102 mmol/L (98-107); CREATININE 0.7 mg/dL (0.6-1.3); GLUCOSE 189 mg/dL (74-106); POTASSIUM 3.8 mmol/L (3.5-5.1); SODIUM SERUM 135 mmol/L (136-145); UREA NITROGEN, BLOOD 15 mg/dL (7-18)
[2022-01-11] MEDS: PANTOPRAZOLE 40 MG VIAL IV SCH (08:36)
[2022-01-11] MEDS: ENOXAPARIN SODIUM 40 MG/0.4 ML DISP.SYRIN SQ SCH (08:47)
[2022-01-11] MEDS: MORPHINE SULFATE INJ 2 MG/ML DISP.SYRIN IV PRN ×2 (13:55→21:03)
--- NOTE | 2022-01-11 13:55 | NUR ---
RN NOTE PATIENT WAS COMPLAINING OF RIGHT HIP PAIN AT THE SCALE OF 6/10 AND ASKED FOR PAIN MEDICATION. MORPHINE 2MG IV WAS GIVEN PRN FOR PAIN.
[2022-01-11 16:00] VITALS: BP 117/63
[2022-01-11] MEDS: MAGNESIUM HYDROXIDE 30 ML UDC PO PRN (17:37)
--- NOTE | 2022-01-11 17:38 | NUR ---
RN NOTE PATIENT WAS ASKING FOR MEDICATION FOR CONSTIPATION. MILK OF MAGNESIA PRN FOR CONSTIPATION.
--- NOTE | 2022-01-11 18:00 | NUR ---
MS RN NOTES 1800- RECEIVED PATIENT FROM AM RN TO [facility] UNTIL QUANG. PT IN BED AWAKE AND A/O X4. ON ROOM AIR TOLERATING WELL. NO SOB NOTED. NOT IN DISTRESS. WITH COMPLAINTS OF PAIN AT THE RIGHT HIP AT THE SCALE OF 5/10 S/P RIGHT HIP ORIF BUT DOESN'T ASK FOR ANY PAIN MEDICATION. WITH IV ACCESS AT THE LEFT HAND G20 WITH IVF D5 1/2NS AT 75ML/HR INFUSING WELL. WITH SMITH CATHETER IN PLACED DRAINING CLEAR YELLOW URINE. SAFETY MEASURES IN PLACED. CALL LIGHT WITHIN REACH. BED ON LOWEST LOCKED POSITION, SIDE RAILS UP X2. WILL ENDORSE PATIENT FOR QUANG.
--- NOTE | 2022-01-11 18:03 | NUR ---
MS RN CLOSING NOTES PATIENT ON BED AWAKE AND A/O X4. ON ROOM AIR TOLERATING WELL. NO SOB NOTED. NOT IN DISTRESS. WITH COMPLAINTS OF PAIN AT THE RIGHT HIP AT THE SCALE OF 5/10 S/P RIGHT HIP ORIF BUT DOESN'T ASK FOR ANY PAIN MEDICATION. WITH IV ACCESS AT THE LEFT HAND G20 WITH IVF D5 1/2NS AT 75ML/HR INFUSING WELL. WITH SMITH CATHETER IN PLACED DRAINING CLEAR YELLOW URINE. SAFETY MEASURES IN PLACED. CALL LIGHT WITHIN REACH. BED ON LOWEST LOCKED POSITION, SIDE RAILS UP X2. WILL ENDORSE PATIENT FOR QUANG.
--- NOTE | 2022-01-11 19:15 | NUR ---
RN NOTE PT RESTING IN BED, EASILY AROUSABLE TO STIMULI. A/OX4, ABLE TO MAKE NEEDS KNOWN. ANGOLAN-SPEAKING, SOME URDU. PT S/P R-HIP ORIF WITH DRESSING IN PLACE, C/D/I. WITH SON AT BEDSIDE VISITING. NO C/O PAIN AT THIS TIME. IV ACCESS L-FA #20G INTACT/PATENT, RUNNING D5 1/2NS @75ML/HR. WITH F/C IN PLACE, DRAINING CLEAR YELLOW URINE. PT IN NO ACUTE DISTRESS. SAFETY MEASURE IN PLACE. WILL CONT TO MONITOR.
[2022-01-11 20:00] VITALS: BP 127/69
[2022-01-11] MEDS: IV D5/0.45 NACL 1,000 ML IV PRN (23:16)
[2022-01-12] VITALS (7 sets, daily range): BP systolic 110–127; BP diastolic 54–78
[2022-01-12] MEDS: MORPHINE SULFATE INJ 2 MG/ML DISP.SYRIN IV PRN ×4 (01:15→15:51)
--- NOTE | 2022-01-12 06:45 | NUR ---
RN NOTE PT C/O PAIN TO L-FA IV SITE WHEN FLUSHED AND NOTICED LEAKING. DC'D IV SITE AND REINSERTED NEW IV ACCESS TO L-AC #22G WITH GOOD BLOOD RETURN AND ELIEL WELL.
[2022-01-12 07:10] LABS: BASOPHILS % (AUTO) 0.3 % (0.0-2.0); EOSINOPHILS % (AUTO) 1.4 % (0.0-6.0); HEMATOCRIT 23 % (33-45); HEMOGLOBIN 7.6 g/dL (11.5-14.8); MEAN CORPUSCULAR HGB CONC 33 g/dl (31.0-36.0); MEAN CORPUSCULAR VOLUME 90 fL (82-100); MONOCYTES # (AUTO) 1.2 K/uL (0.1-1.30); MONOCYTES % (AUTO) 15.6 % (2.0-12.0); NEUTROPHILS # (AUTO) 5.6 K/uL (1.8-8.9); NEUTROPHILS % (AUTO) 69.7 % (43.0-81.0); PLATELET COUNT (AUTO) 141 K/uL (150-450); RED BLOOD CELL COUNT(AUTO) 2.54 MIL/uL (4.0-5.2)
--- NOTE | 2022-01-12 07:10 | NUR ---
MS RN OPENING NOTE: PATIENT RECEIVED IN BED AWAKE A/O X4. ON ROOM AIR TOLERATING WELL. NO SIGNS OF RESPIRATORY DISTRESS NOTED. ABLE TO MAKE NEEDS KNOWN AND DOES NOT VERBALIZE ANY PAIN AT THIS TIME. PT. HAS IV ACCESS ON LEFT AC #22 G WITH D5 1/2NS RUNNING AT 75ML/HR, INFUSING WELL WITH NO SIGNS OF INFILTRATION OR PHLEBITIS. PT. HAS SURGICAL DRESSING ON RIGHT THIGH S/P RIGHT FEMUR ORIF, DRESSING C/D/I. PT. HAS SMITH CATHETER, PATENT AND DRAINING CLEAR & YELLOW URINE. SAFETY MEASURES IN PLACE: CALL LIGHT AND BELONGINGS WITHIN EASY REACH. BED IN LOWEST AND LOCKED POSITION, SIDE RAILS UP X2. WILL CONTINUE TO MONITOR.
[2022-01-12] MEDS: PANTOPRAZOLE 40 MG TABLET.DR PO SCH (07:45)
[2022-01-12 07:47] LABS: CALCIUM, SERUM 7.8 mg/dL (8.5-10.1); CREATININE 0.7 mg/dL (0.6-1.3); POTASSIUM 4.2 mmol/L (3.5-5.1)
[2022-01-12] MEDS: ENOXAPARIN SODIUM 40 MG/0.4 ML DISP.SYRIN SQ SCH (08:43)
[2022-01-12] MEDS: ALLOPURINOL 100 MG TABLET PO SCH (09:16)
[2022-01-12] MEDS: MONTELUKAST SODIUM (10MG) 10 MG TABLET PO SCH (09:16)
[2022-01-12] MEDS: AMLODIPINE BESYLATE 5 MG TABLET PO SCH (09:17)
[2022-01-12 09:43] LABS: EOSINOPHILS % (MANUAL) 2 % (0-4); LYMPHOCYTES % (MANUAL) 7 % (16-48); MONOCYTES % (MANUAL) 7 % (0-11.0); NEUTROPHILS % (MANUAL) 84 (42-76)
[2022-01-12] MEDS: IV D5/0.45 NACL 1,000 ML IV PRN (18:42)
--- NOTE | 2022-01-12 18:51 | NUR ---
MS RN CLOSING NOTE: PATIENT REMAINS IN BED AWAKE A/O X4. ON ROOM AIR TOLERATING WELL. BREATHING EVEN AND UNLABORED. ABLE TO MAKE SIMPLE NEEDS KNOWN. PT. DOES NOT COMPLAIN OF PAIN AT THIS TIME. PT. HAS IV ACCESS ON LEFT AC #22 G WITH D5 1/2NS RUNNING AT 75ML/HR, PATENT HAS NO SIGNS OF INFLAMMATION AND INFILTRATION ON IV SITE. PT. HAS SURGICAL DRESSING ON RIGHT HIP AND THIGH S/P RIGHT FEMUR ORIF, DRESSING C/D/I. PT. HAS SMITH CATHETER, PATENT AND DRAINING CLEAR & YELLOW URINE WITH AN OUTPUT OF 1,800 ML THE ENTIRE SHIFT. SAFETY, FALL AND PRESSURE ULCER PRECAUTIONS MAINTAINED: CALL LIGHT AND BELONGINGS WITHIN EASY REACH, BED IN LOWEST AND LOCKED POSITION, SIDE RAILS UP X2, BED ALARM ON, NON-SLIP SOCKS ON, AND ENCOURAGED PT. TO REPOSITION AT LEAST EVERY 2 HRS. WILL ENDORSE CONTINUITY OF CARE TO NURSING ASSOC RN.
[2022-01-12] MEDS: SIMVASTATIN 20 MG TABLET PO SCH (21:11)
--- NOTE | 2022-01-13 00:35 | NUR ---
RN NOTE CHANGE OF CARE AT THIS TIME. PT RESTING IN BED. ALL NEEDS MET AT THIS TIME.
[2022-01-13] MEDS: MORPHINE SULFATE INJ 2 MG/ML DISP.SYRIN IV PRN ×4 (03:47→20:10)
--- NOTE | 2022-01-13 03:47 | NUR ---
RN NOTE PT COMPLAINED OF PAIN 5/10 OF HIP. ADMINISTERED MORPHINE 2 MG FOR SEVERE PAIN. MADE COMFORTABLE IN BED. AL NEEDS MET AT THIS TIME.
--- NOTE | 2022-01-13 06:36 | NUR ---
MS LIANA OPENING NOTE PT IN BED AWAKE. A/O X4 AND ABLE TO MAKE NEEDS KNOWN. PT STABLE ON ROOM AIR. NO SOB OR S/S OF RESPIRATORY DISTRESS. BREATHING EVEN AND UNLABORED. IV ACCESS LAC #22 G RUNNING D5 1/2NS @ 75ML/HR, WITH SURGICAL DRESSING ON RIGHT HIP AND THIGH S/P RIGHT FEMUR ORIF, DRESSING C/D/I. WITH SMITH DRAINING CLEAR YELLOW URINE. ALL DUE MEDS GIVEN ORDERED. SAFETY PRECAUTIONS IN PLACE. BED IN LOWEST LOCKED POSITION, HOB ELEVATED, SIDE RAILS UP X2, AND CALL LIGHT AND TABLE WITHIN REACH. ALL NEEDS MET AT THIS TIME AND WILL ENDORSE TO ONCOMING SHIFT FOR QUANG. Addendum: 01/13/22 at 0641 by JAYCE VALLADARES RN MS GAINES CLOSING NOTE
--- NOTE | 2022-01-13 07:05 | NUR ---
MS RN OPENING NOTE: PATIENT RECEIVED IN BED AWAKE A/O X4. ON ROOM AIR, SATURATING WELL. BREATHING EVEN AND UNLABORED. ABLE TO MAKE SIMPLE NEEDS KNOWN AND DOES NOT COMPLAIN OF PAIN AT THIS TIME. PT. HAS IV ACCESS ON LEFT AC #22 G WITH D5 1/2NS RUNNING AT 75ML/HR, RUNNING WELL WITH NO SIGNS OF INFILTRATION OR PHLEBITIS. PT. HAS SURGICAL DRESSING ON RIGHT HIP UP UNTIL THE LATERAL THIGH S/P RIGHT FEMUR ORIF ON 01/10/22, DRESSING C/D/I. PT. HAS SMITH CATHETER, PATENT AND DRAINING CLEAR & YELLOW URINE. SAFETY, FALL AND PRESSURE ULCER PRECAUTIONS IN PLACE: CALL LIGHT AND BELONGINGS WITHIN EASY REACH, BED IN LOWEST AND LOCKED POSITION, SIDE RAILS UP X2, BED ALARM ON, AND ENCOURAGED PT. TO TURN FROM SIDE TO SIDE IN BED AT LEAST EVERY 2 HRS. WILL CONTINUE TO MONITOR.
[2022-01-13 07:10] LABS: CALCIUM, SERUM 8.2 mg/dL (8.5-10.1); CREATININE 0.6 mg/dL (0.6-1.3); POTASSIUM 4.2 mmol/L (3.5-5.1)
[2022-01-13 07:43] LABS: BASOPHILS % (AUTO) 0.4 % (0.0-2.0); EOSINOPHILS % (AUTO) 4.1 % (0.0-6.0); HEMATOCRIT 23 % (33-45); HEMOGLOBIN 7.6 g/dL (11.5-14.8); MEAN CORPUSCULAR HGB CONC 33 g/dl (31.0-36.0); MEAN CORPUSCULAR VOLUME 90 fL (82-100); MONOCYTES # (AUTO) 1.1 K/uL (0.1-1.30); MONOCYTES % (AUTO) 14.5 % (2.0-12.0); PLATELET COUNT (AUTO) 144 K/uL (150-450); RED BLOOD CELL COUNT(AUTO) 2.56 MIL/uL (4.0-5.2); WHITE BLOOD COUNT (AUTO) 7.4 K/uL (4.3-11.0)
[2022-01-13] MEDS: PANTOPRAZOLE 40 MG TABLET.DR PO SCH (07:50)
[2022-01-13] MEDS: IV D5/0.45 NACL 1,000 ML IV PRN ×2 (07:50→21:45)
[2022-01-13 08:00] VITALS: BP 130/69
[2022-01-13] MEDS: ENOXAPARIN SODIUM 40 MG/0.4 ML DISP.SYRIN SQ SCH (08:52)
[2022-01-13] MEDS: MONTELUKAST SODIUM (10MG) 10 MG TABLET PO SCH (08:53)
[2022-01-13] MEDS: AMLODIPINE BESYLATE 5 MG TABLET PO SCH (08:53)
[2022-01-13] MEDS: ALLOPURINOL 100 MG TABLET PO SCH (08:53)
--- NOTE | 2022-01-13 09:30 | NUR ---
MS RN NOTE: PT. VISITED AND ASSESSED BY [facility]. WAS ADVISED TO KEEP CURRENT DRESSING ON IT IS CLEAN, DRY AND INTACT. WILL WAIT FOR FURTHER INSTRUCTIONS.
[2022-01-13 09:38] LABS: IRON, SERUM 15 ug/dl (50-175); TOTAL IRON BINDING CAPACITY 141 ug/dl (250-450)
[2022-01-13 09:53] LABS: FERRITIN 172 ng/mL (8-388)
--- NOTE | 2022-01-13 14:20 | NUR ---
MS RN NOTE: SPOKE WITH YOUNG OF [facility]AL[facility] OFFICE ([facility]) REGARDING ELECTRONIC PRESCRIPTION OF PT'S PAIN MEDS ONCE DISCHARGED. CONFIRMED WITH PT. HERSELF THAT THE PREFERRED PHARMACY IS: [facility] LOCATED AT [address] [place] [address]. YOUNG OF [facility] OFFICE MADE AWARE OF PREFERRED PHARMACY. LIZBETH TRUONG MADE AWARE OF THE CALL WELL.
[2022-01-13 16:00] VITALS: BP 120/63
--- NOTE | 2022-01-13 18:59 | NUR ---
MS RN CLOSING NOTE: PATIENT REMAINS IN BED, AWAKE, A/O X4. FAMILY AT BEDSIDE, TALKING WITH THE PATIENT. ON ROOM AIR, WITH NO S/S OF RESPIRATORY DISTRESS. ABLE TO MAKE NEEDS KNOWN AND DOES NOT VERBALIZE PAIN OR DISCOMFORT AT THIS TIME. PT. HAS IV ACCESS ON LEFT AC #22 G WITH D5 1/2NS RUNNING AT 75ML/HR, PATENT AND FLUSHING WELL, WITH NO REDNESS, INFLAMMATION OR SIGNS OF INFILTRATION. PT. HAS SURGICAL DRESSING ON RIGHT HIP UP UNTIL THE LATERAL THIGH S/P RIGHT FEMUR ORIF ON 01/10/22, DRESSING C/D/I. PT. HAS SMITH CATHETER, PATENT AND DRAINING CLEAR & YELLOW URINE WITH AN OUTPUT OF 1,500 ML THROUGHOUT THE SHIFT. SAFETY, FALL AND PRESSURE ULCER PRECAUTIONS MAINTAINED: CALL LIGHT AND BELONGINGS WITHIN EASY REACH, BED IN LOWEST AND LOCKED POSITION, SIDE RAILS UP X2, BED ALARM ON, AND ENCOURAGED PT. TO TURN FROM SIDE TO SIDE IN BED AT LEAST EVERY 2 HRS. WILL ENDORSE CONTINUITY OF CARE TO FOOTWEAR SALES COORDINATOR RN.
--- NOTE | 2022-01-13 19:15 | NUR ---
RN NOTE PT RESTING IN BED, AWAKE, A/OX4, ABLE TO MAKE NEEDS KNOWN. KHMER-SPEAKING, SOME SLOVENIAN. PT S/P R-HIP ORIF WITH DRESSING IN PLACE, C/D/I. NO C/O PAIN AT THIS TIME. IV ACCESS L-AC #22G INTACT/PATENT, RUNNING D5 1/2NS @75ML/HR. WITH F/C IN PLACE, DRAINING CLEAR YELLOW URINE. PT IN NO ACUTE DISTRESS. SAFETY MEASURE IN PLACE. WILL CONT TO MONITOR.
--- NOTE | 2022-01-13 19:53 | NUR ---
RN NOTE RECEIVED CALL FROM Chava QIU, FROM [facility] STATING THAT PT'S PAIN MED UPON DISCHARGE SHOULD BE [facility] 5/325 PO Q4-6HR FOR PAIN, FOR HOSPITALIST TO PRESCRIBE. WILL ENDORSE TO AM SHIFT.
[2022-01-13 20:19] VITALS: BP 130/80
[2022-01-13] MEDS: SIMVASTATIN 20 MG TABLET PO SCH (22:10)
--- NOTE | 2022-01-14 00:24 | NUR ---
RN NOTE ENDORSED TO LIANA WOODS FOR CONTINUITY OF CARE
--- NOTE | 2022-01-14 00:30 | NUR ---
MS RN OPENING NOTE RECEIVED PATIENT IN BED; AWAKE, A/OX4. BREATHING IS EVEN AND NONLABORED. ON ROOM AIR; TOLERATING WELL. IN NO ACUTE DISTRESS NOTED. ARABIC/SLOVENIAN SPEAKING, SPEAKS SOME SPANISH. S/P RIGHT HIP ORIF WITH DRESSING IN PLACE, C/D/I. DENIES ANY PAIN OR DISCOMFORT OF THIS TIME. WITH IV ACCESS ON LEFT ANTECUBITAL G#22; PATENT AND INTACT INFUSING WITH D5 1/2 NS REGULATED @75ML/HR. WITH SMITH CATHETER IN PLACE ATTACHED TO UROBAG DRAINING TO CLEAR YELLOW URINE. ABLE TO MAKE NEEDS KNOWN. FALL AND SAFETY MEASURES IMPLEMENTED: CALL LIGHT AND TABLE WITHIN EASY REACH, SIDE RAILS UP X2, BED IN LOWEST LOCKED POSITION. WILL CONTINUE TO MONITOR
[2022-01-14] MEDS: MORPHINE SULFATE INJ 2 MG/ML DISP.SYRIN IV PRN ×2 (02:18→09:52)
--- NOTE | 2022-01-14 02:21 | NUR ---
RN NOTE PATIENT COMPLAINED OF RIGHT HIP PAIN 5/10; ADMINISTERED MORPHINE 2 MG VIA IVP FOR SEVERE PAIN. MADE COMFORTABLE IN BED. ALL NEEDS ATTENDED AT THIS TIME.
[2022-01-14 06:13] LABS: BASOPHILS % (AUTO) 0.3 % (0.0-2.0); EOSINOPHILS % (AUTO) 5.1 % (0.0-6.0); HEMATOCRIT 22 % (33-45); HEMOGLOBIN 7.3 g/dL (11.5-14.8); LYMPHOCYTES # (AUTO) 1.2 K/uL (0.8-4.8); LYMPHOCYTES % (AUTO) 15.9 % (20.0-44.0); MEAN CORPUSCULAR HGB CONC 34 g/dl (31.0-36.0); MEAN CORPUSCULAR VOLUME 90 fL (82-100); MONOCYTES % (AUTO) 13.1 % (2.0-12.0); NEUTROPHILS % (AUTO) 65.6 % (43.0-81.0); PLATELET COUNT (AUTO) 181 K/uL (150-450); RED BLOOD CELL COUNT(AUTO) 2.41 MIL/uL (4.0-5.2); WHITE BLOOD COUNT (AUTO) 7.6 K/uL (4.3-11.0)
[2022-01-14 06:37] LABS: CALCIUM, SERUM 8.1 mg/dL (8.5-10.1); CREATININE 0.7 mg/dL (0.6-1.3); POTASSIUM 4.1 mmol/L (3.5-5.1)
--- NOTE | 2022-01-14 07:00 | NUR ---
MS RN CLOSING NOTE PATIENT RESTING IN BED; AWAKE, A/OX4. STABLE ON ROOM AIR. BREATHING EVENLY AND UNLABORED. IN NO ACUTE DISTRESS NOTED. ESTONIAN/MOHAWK SPEAKING, SPEAKS SOME [place]. NO C/O PAIN OR DISCOMFORT OF THIS TIME. WITH IV ACCESS ON LEFT ANTECUBITAL; PATENT AND INTACT INFUSING WITH D5 1/2 NS REGULATED @75ML/HR. WITH SMITH CATHETER IN PLACE ATTACHED TO UROBAG DRAINING TO CLEAR YELLOW URINE. ABLE TO MAKE NEEDS KNOWN. FALL AND SAFETY MEASURES IMPLEMENTED: CALL LIGHT AND TABLE WITHIN EASY REACH, SIDE RAILS UP X2, BED IN LOWEST LOCKED POSITION. ENDORSED TO MORNING SHIFT FOR QUANG.
--- NOTE | 2022-01-14 07:34 | NUR ---
MS RN OPENING NOTE PATIENT RESTING IN BED; AWAKE, A/OX4. STABLE ON ROOM AIR. BREATHING EVENLY AND UNLABORED. IN NO ACUTE DISTRESS NOTED. SPEAKS SOME ARABIC. NO C/O PAIN OR DISCOMFORT OF THIS TIME. WITH IV ACCESS ON LEFT ANTECUBITAL; PATENT AND INTACT INFUSING WITH D5 1/2 NS REGULATED @75ML/HR. WITH SMITH CATHETER IN PLACE ATTACHED TO UROBAG DRAINING TO CLEAR YELLOW URINE. ABLE TO MAKE NEEDS KNOWN. FALL AND SAFETY MEASURES IMPLEMENTED: CALL LIGHT AND TABLE WITHIN EASY REACH, SIDE RAILS UP X2, BED IN LOWEST LOCKED POSITION. WILL CONTINUE PLAN OF CARE AND ANTICIPATE NEEDS.
[2022-01-14 08:00] VITALS: BP_SYST 124; BP_SYST 160; BP_DIAS 69; BP_DIAS 98
[2022-01-14] MEDS: MONTELUKAST SODIUM (10MG) 10 MG TABLET PO SCH (08:05)
[2022-01-14] MEDS: PANTOPRAZOLE 40 MG TABLET.DR PO SCH (08:05)
[2022-01-14] MEDS: ALLOPURINOL 100 MG TABLET PO SCH (08:05)
[2022-01-14] MEDS: AMLODIPINE BESYLATE 5 MG TABLET PO SCH (08:06)
[2022-01-14] MEDS: ENOXAPARIN SODIUM 40 MG/0.4 ML DISP.SYRIN SQ SCH (08:07)
[2022-01-14] MEDS ORDERED: SOD FERRIC GLUC 125 MG in IV NS 0.9% 100 ML IV SCH (14:00)
[2022-01-14 16:00] VITALS: BP 125/66
--- NOTE | 2022-01-14 16:48 | NUR ---
RN CLOSING NOTE PATIENT HAS BEEN DISCHARGED HOME. PATIENTS DAUGHTER SIGNED DISCHARGE INSTRUCTIONS, AND VERBALIZED UNDERSTANDING. PATIENTS BELONGINGS LIST SIGNED AND IN PHYSICAL CHART. IV ACCESS ON THE LEFT FOREARM HAS BEEN DISCONTINUED, NO BLEEDING NOTED. PATIENTS SURGICAL DRESSING INTACT. SMITH CATHETER HAS BEEN DISCONTINUED. PATIENT WAS WHEELED OUT TO [facility] WHERE SHE WAS RECEIVED BY HER DAUGHTER IN A PRIVATE VEHICLE. PATIENT LEFT FACILITY SAFE IN STABLE CONDITIO.
== END 2022-01-14 17:00 | disposition home health service (06) | DRG 482 ==
LOC: ER 17:46 → MED 21:09
PROVIDERS: ADMIT Nurse Practitioner Acute Care; ATTEND Internal Medicine
PROC: 0QS606Z Reposition Right Upper Femur with Intramedullary Internal Fixation Device, Open Approach (ICD-10-PCS; principal; 2022-01-10)
DX: S72.21XA Displaced subtrochanteric fracture of right femur, initial encounter for closed fracture (principal); W19.XXXA Unspecified fall, initial encounter; Y93.9 Activity, unspecified; Y92.009 Unspecified place in unspecified non-institutional (private) residence as the place of occurrence of the external cause; D64.9 Anemia, unspecified; E78.5 Hyperlipidemia, unspecified; E87.6 Hypokalemia; F41.9 Anxiety disorder, unspecified; I10 Essential (primary) hypertension; J45.909 Unspecified asthma, uncomplicated; Z20.822 Contact with and (suspected) exposure to COVID-19; Z79.82 Long term (current) use of aspirin; Z96.653 Presence of artificial knee joint, bilateral; I08.0 Rheumatic disorders of both mitral and aortic valves
CPT/HCPCS: 36415; 71045-TC; 73502; 73552; 73610-TC; 73630-TC; 73700-TC; 80048-TC; 80053-TC; 80076-TC; 82728-TC; 83540-TC; 83735-TC; 84100-TC; 84439-TC; 84443-TC; 84484-TC; 85025-TC; 85027-TC; 85610-TC; 85730-TC; 86850-TC; 87081-TC; 93307-TC; 97110-TC; 97112-TC; 97116-TC; 97530-TC; A4217; A6209; A6253; C1713; C9113; C9803; G0378; J0690; J1100; J1170; J1650; J1885; J2270; J2405; J2704; J2916; J3480; J3490; J7030; J7050; J7060